=== PATIENT | female | born 1975 ===

== ENCOUNTER 2017-08-20 19:15 | Emergency (ER) | payer OTHER ==
[~2017-08-20 19:15] MED LIST: ESCITALOPRAM10 MG PO; LAMOTRIGINE150 MG PO; LEVSIN0.125 MG PO; TRAMADOL50 MG PO
[2017-08-20 19:24] VITALS: BP 127/63
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
== END 2017-08-20 20:35 ==
LOC: ERH 19:15
DX: S01.01XA Laceration without foreign body of scalp, initial encounter (principal); S09.90XA Unspecified injury of head, initial encounter; W22.8XXA Striking against or struck by other objects, initial encounter; Y92.9 Unspecified place or not applicable; Y93.E9 Activity, other interior property and clothing maintenance
CPT/HCPCS: 90471; 90714

== ENCOUNTER 2017-10-20 08:09 | Emergency (ER) | payer OTHER ==
[~2017-10-20] VITALS: Ht 157.5 cm; Wt 68.0 kg
[2017-10-20 08:16] VITALS: BP 131/79
[2017-10-20 08:47] LABS: ABSOLUTE BASOPHIL COUNT 0.1 /CUMM (0.0-0.2); ABSOLUTE EOSINOPHIL COUNT 0.1 /CUMM (0.0-0.7); ABSOLUTE GRANULOCYTE CT 9.1 /CUMM (1.4-6.5); ABSOLUTE LYMPH COUNT 2.5 /CUMM (1.2-3.4); ABSOLUTE MONOCYTE COUNT 0.6 /CUMM (0.10-0.60); BASOPHIL % 0.5 % (0.0-2.0); EOSINOPHIL % 0.7 % (0-5); GRANULOCYTE % 74.2 % (42.2-75.2); HEMATOCRIT 36.8 % (37-47); MEAN CORPUSCULAR HGB 31.5 PG (27.0-31.0); MEAN CORPUSCULAR HGB CONC 34.1 G/DL (33.0-37.0); MEAN CORPUSCULAR VOLUME 92.2 FL (81.0-99.0); MEAN PLATELET VOLUME 7.5 FL (7.4-10.4); PLATELET COUNT 307 /CUMM (130-400); RBC DISTRIBUTION WIDTH 13.6 % (11.5-14.5); RED BLOOD CELL CT 3.99 /CUMM (4.20-5.40); WHITE BLOOD CELL COUNT 12.3 /CUMM (4.8-10.8)
--- NOTE | 2017-10-20 09:16 | RADIOLOGY REPORT ---
EXAMINATION: XR CHEST CLINICAL INFORMATION: Chest pain. COMPARISON: None. TECHNIQUE: Frontal and lateral views of the chest were obtained. FINDINGS: The lung smith are well expanded and appear clear bilaterally. There is distention of the bowel in the left upper quadrant. The cardiac silhouette is normal. There are no pleural effusions or pneumothorax. The central pulmonary vasculature is normal. The hilar regions appear normal. There are mild degenerative changes in the thoracic spine. IMPRESSION: 1. There are no acute cardiopulmonary findings. 2. There is distention of bowel in the left upper quadrant.
== END 2017-10-20 11:04 | disposition admitted as inpatient to this hospital (09) ==
LOC: ERH 08:09
PROVIDERS: Emergency Medicine
DX: R07.9 Chest pain, unspecified (principal)
CPT/HCPCS: 71046; 81001; 81025; 93005; 93010; 99281